=== PATIENT | female | born 1980 | race Caucasian/White ===

== ENCOUNTER → 2017-06-17 | Outpatient (CLI) | payer BC ==
--- NOTE | ~2017-06-17 | CNG ---
[facility] [place] [address] CYTO-NONGYN REPORT PROCEDURE Name: ANAIS OSMAN Room #: REG ADENIKE RazaEmilie.#: [id number] Admission: 06/17/17 Date of : 82 Discharge: Report #: [id number] Path Case #: [id number] CYTOPATHOLOGY REPORT COLLECTION DATE: 06/17/2017 RECEIVED DATE: 06/17/2017 SUBMITTING PHYS: Dr. Caesar Lind OTHER PHYS: Dr. Rian Guillen CLINICAL HISTORY: Mass. SPECIMEN(S) RECEIVED: A.US gudied Fine needle aspiration, Left thyroid nodule * * * * * * * * * * * * FINAL DIAGNOSIS: A. US gudied Fine needle aspiration, Left thyroid nodule: [place] CATEGORY II. SPECIMEN CONSISTS OF SCANT BENIGN FOLLICULAR CELLS, HEMOSIDERIN-LADEN MACROPHAGES, COLLOID, AND BLOOD. THIS PATTERN IS CONSISTENT WITH A BENIGN PROCESS SUCH A COLLOID NODULE OR AN ADENOMATOID NODULE. PATHOLOGIST: Lorrie Delacruz M.D. REPORT ELECTRONICALLY SIGNED BY: Lorrie Delacruz M.D. DATE/TIME: 06/18/2017 11:21 * * * * * * * * * * * * GROSS PATHOLOGY: A. US gudied Fine needle aspiration, Left thyroid nodule: The specimen is labeled "Anais Osman" and consists of three fixed slides, three air dried slides. Twenty mL of clear pink fluid in fixative from the needle rinse is also submitted and one ThinPrep slide and a cell block were prepared from this material. (clt 8) Also received is the RNARetain vial which will be held for molecular studies if needed. PROJECT ASSOCIATE(S): RACH Fried([facility]) INITIAL CPT CODE(S): A; 03203, 09750 Professional services performed by [facility] at [facility] [address] [facility] [place] [address] Technical services performed by [facility] at [address] [place] [address], [address], [place] [address]. [facility] [address] [place] [address] CYTO-NONGYN REPORT PROCEDURE Name: OSMANANAIS Room #: REG ADENIKE Perkins.#: [id number] Admission: 06/17/17 Date of : 82 Discharge: Report #: [id number] Path Case #: [id number] [facility] [address] [place] [address], [address] [place] [address] PHONE: [phone] DIRECTOR: Scot Juarez M.D. * * * END OF REPORT * * *
--- NOTE | ~2017-06-17 | S ---
[facility] [place] [address] SURGICAL PATH RPT PROCEDURE Name: CHIARA OSMAN Room #: REG ADENIKE Perkins.#: [id number] Admission: 06/17/17 Date of : 82 Discharge: Report #: [id number] Path Case #: [id number] PATHOLOGY REPORT COLLECTION DATE: 06/17/2017 RECEIVED DATE: 06/17/2017 SUBMITTING PHYS: Dr. Caesar Lind OTHER PHYS: Dr. Rian Guillen SPECIMEN(S) RECEIVED: A.Lt nodule mass * * * * * * * * * * * * FINAL DIAGNOSIS: Thyroid nodule, left, core needle biopsy: - Fragments of bland follicular epithelium. - No evidence of papillary carcinoma. (Please see comment) (SKM:dustin; 06/18/2017) COMMENT: Sections show bland follicular epithelium in which the follicles vary in size. No areas of papillary architecture are seen. No nuclear pseudoinclusions are seen. (SKM:dustin; 06/18/2017) PATHOLOGIST: Lorrie Delacruz M.D. REPORT ELECTRONICALLY SIGNED BY: Lorrie Delacruz M.D. DATE/TIME: 06/18/2017 12:19 * * * * * * * * * * * * GROSS PATHOLOGY: Received in formalin labeled "Ashleigh Osman, left neck thyroid," are multiple distinct needle cores of shah soft tissue ranging from 0.1 to 0.3 cm in length, which are submitted entirely in cassette A1. (SNA; 06/17/2017) CLINICAL HISTORY: Mass INITIAL CPT CODE(S): A; 16508 Professional services performed by [facility] at [facility], [address], [place] [address]. Technical [facility] [address] [place] [address] SURGICAL PATH RPT PROCEDURE Name: CHIARA OSMAN Room #: REG ADENIKE Onofre#: [id number] Admission: 06/17/17 Date of : 82 Discharge: Report #: [id number] Path Case #: [id number] [facility] [address] [place] [address], [facility] [address] [address]. [facility] [address] [address] PHONE: [phone] DIRECTOR: Scot Juarez M.D. * * * END OF REPORT * * *
== END | disposition home or self-care (01) ==
LOC: ULTRA 09:04 → LABMALL 09:04 → ULTRA 14:34
DX: D34 Benign neoplasm of thyroid gland (principal)

== ENCOUNTER → 2017-06-23 | Outpatient (CLI) | payer BC, OTHER ==
--- NOTE | ~2017-06-23 | EKG ---
[address] [address] ELECTROCARDIOGRAM REPORT Name: CHIARA JACKSON Room #: REG [facility] [id number] Admission: 06/23/17 Attend Phys: Caesar Lind MD Discharge: Date of : 82 Report #: [id number] THIS REPORT FOR: //name// [facility] Test Date: 2017-06-23 Test Time: 13:42:24 Pat Name: CHIARA JACKSON Department: Room: Gender: F Reimbursement Consultant: Ajit DENNIS : 1980 Requested By: Caesar Lind Order Number: [id number] MD: Measurements Intervals [place] Rate: 78 P: 58 [place]: 133 QRS: 44 QRSD: 86 T: 16 QT: 390 QTc: 445 Interpretive Statements Sinus rhythm Consider left ventricular hypertrophy No previous ECG available for comparison [email or web address] By: 134 1342 Rachael Cano MD /EPI
[2017-06-23 13:21] LABS: HEMATOCRIT 35.8 % (37.0-47.0); HEMOGLOBIN 11.4 gm/dL (12.0-15.0); MCH 22.2 pg (26.0-34.0); MCHC 31.9 g/dL (28.0-37.0); MCV 69.7 fL (80.0-100.0); PLATELET COUNT 223 thou/uL (150-400); RBC 5.14 mil/uL (4.20-5.00); RDW 23.2 % (10.5-14.5); WBC 6.9 thou/uL (4.0-11.0)
[2017-06-23 13:25] LABS: MANUAL DIFF YES
[2017-06-23 13:51] LABS: ABSOLUTE NEUTROPHILS 4.7 thou/uL (1.4-8.2); ANISOCYTOSIS 1+; MICROCYTES 3+; PLATELET ESTIMATE NORMAL; TOTAL CELL COUNT 100
== END ==
LOC: CV 12:50
PROVIDERS: Otolaryngology Plastic Surgery within the Head & Neck
DX: E07.9 Disorder of thyroid, unspecified (principal); E66.3 Overweight; R13.10 Dysphagia, unspecified; R53.83 Other fatigue

== ENCOUNTER 2017-07-01 05:11 | Day surgery (SDC) | payer BC, OTHER ==
[~2017-07-01] VITALS: Ht 160 cm; Wt 76.7 kg
--- NOTE | ~2017-07-01 | S ---
[facility] [place] [address] SURGICAL PATH RPT PROCEDURE Name: ANAIS GALEANO Room #: DEP [facility]..#: [id number] Admission: 07/01/17 Date of : 82 Discharge: 07/02/17 Report #: [id number] Path Case #: [id number] PATHOLOGY REPORT COLLECTION DATE: 07/01/2017 RECEIVED DATE: 07/02/2017 SUBMITTING PHYS: Dr. Caesar Lind OTHER PHYS: Dr. Rian Guillen SPECIMEN(S) RECEIVED: A.Left thyroid lobe and isthmus B.Right thyroid lobe * * * * * * * * * * * * FINAL DIAGNOSIS: A. "Left thyroid lobe and isthmus", thyroid lobectomy: - Thyroid with dominant nodule of nodular hyperplasia. - Lymph nodes (2) with mild hyperplasia. (2 nodes) B. "Right thyroid lobe", thyroid lobectomy: - Thyroid with nodular hyperplasia. - Lymph nodes (2) with mild hyperplasia. (2 nodes) COMMENT: The patient has a history of "fragments of bland follicular epithelium, no evidence of papillary carcinoma" from a left thyroid nodule needle core biopsy ([id number]) and "[place] category II - specimen consists of scant benign follicular cells, hemosiderin laden macrophages, colloid and blood. This pattern is consistent with a benign process such as a colloid nodule or an adenomatoid nodule" from an ultrasound guided fine needle aspiration of the left thyroid nodule ([id number]). Clinical and radiographic correlation is recommended. (CLW:db; 07/03/2017) PATHOLOGIST: Marlena Ndiaye M.D. REPORT ELECTRONICALLY SIGNED BY: Marlena Ndiaye M.D. DATE/TIME: 07/03/2017 15:09 * * * * * * * * * * * * GROSS PATHOLOGY: A. Specimen received fresh labeled "Anais Fernandez, left lobe of thyroid and isthmus" consists of a lobe of thyroid with portion of isthmus. The specimen weighs 9.8 grams and measures 4 x 2.5 x 1.5 cm. The specimen is inked black with isthmus inked yellow. The specimen is serially sectioned to reveal a nodule occupying almost the entire lobe measuring 3 x 2 x 1.5 cm. It is well [address] [address] SURGICAL PATH RPT PROCEDURE Name: ANAIS GALEANO Room #: DEP [facility]#: [id number] Admission: 07/01/17 Date of : 82 Discharge: 07/02/17 Report #: [id number] Path Case #: [id number] circumscribed with focal areas of hemorrhage and cystic change. A portion of the nodule is frozen and touch preps are prepared. The frozen section was submitted in cassette labeled A1 and the rest of the thyroid was submitted in cassette labeled A2-A5. (LEXA:; 07/02/2017) B. The specimen is received in formalin, labeled "Anais Fernandez, right thyroid lobe" is a thyroid lobectomy specimen and separately received nodule. The separate nodule measures 1.0 x 0.6 x 0.3 cm. Prior to sectioning outer surfaces are inked black. The cut surface has a pink-red, spongy appearance. No additional abnormalities are noted. The lobectomy specimen weighs 5 g and measures 4.2 x 2.5 x 0.6 cm. Outer surfaces have a pink red, ragged to bosselated appearance. Prior to sectioning outer surfaces are inked black. The cut surface is pink red, spongy and congested. One circumscribed, shah, colloid nodule is noted measuring 0.4 cm in greatest dimension. No additional abnormalities are noted. The separately received nodules measure in cassette B1 and the thyroid nodule is serially sectioned and entirely submitted in cassettes B2-B5 with the aforementioned nodule in cassette B2. (JWP; 07/02/2017) FROZEN SECTION DIAGNOSIS: (Lorrie Paulson M.D.) FSA1 thyroid, "left thyroid lobe and isthmus": - Follicular lesion. These findings were discussed with Dr. Lind and a written report was placed in the patient's chart. (SHA:; 07/02/2017) Testing performed by [facility] at [facility] [address] [place] [address] CLINICAL HISTORY: Left thyroid lobe mass INITIAL CPT CODE(S): A; 86517, 03357, 52242 B; 45666, 07489 Professional services performed by [facility] at [facility] [address] [place] [address] Technical services performed by [facility] at [address] [place] [address], [address], [place] [address]. [facility] [address] [place] [address] SURGICAL PATH RPT PROCEDURE Name: JACKSON THIANAIS Room #: [facility] M.Bryn.#: [id number] Admission: 07/01/17 Date of : 82 Discharge: 07/02/17 Report #: [id number] Path Case #: [id number] [facility] [address] [place] [address] PHONE: [phone] DIRECTOR: Scot Juarez M.D. * * * END OF REPORT * * *
--- NOTE | ~2017-07-01 | O ---
[facility] [place] [address] OPERATIVE REPORT Name: CHIARA GALEANO Room #: DEP [facility]..#: [id number] Admission: 07/01/17 Attend Phys: Caesar Lind MD Discharge: 07/02/17 Date of : 82 Report #: [id number] THIS REPORT FOR: //name// CC: Rian Lind DATE OF SERVICE: 07/01/2017 SURGEON: Caesar Lind MD PREOPERATIVE DIAGNOSES: 1. Left thyroid mass. 2. Multinodular goiter. POSTOPERATIVE DIAGNOSES: 1. Left thyroid mass. 2. Multinodular goiter. OPERATION PERFORMED: Total thyroidectomy. INDICATIONS: The patient is a 36-year-old female presenting on referral from her primary care physician, Dr. Guillen with a mass in the left side of thyroid measuring on ultrasound 4.1 cm. The right lobe showed a smaller 1.4 cm mass or nodule. Fine needle aspiration was done consistent with a follicular lesion [place] class II. The mass was symptomatic with dysphagia, compressive symptoms, and some change in voice. In light of the above, recommendations were made for surgical removal. Because the patient has masses bilateral, this would necessitate total thyroidectomy. DESCRIPTION OF PROCEDURE: The patient was brought to the operating room and placed supine on the operating table. After adequate general anesthesia was achieved via endotracheal intubation with a nerve integrity monitoring endotracheal tube, the shoulder was placed and the neck extended. The planned incision was marked out in a relaxed skin tension line above the manubrium and injected with 1% Xylocaine with 1:100,000 epinephrine. As a separate part of the procedure, the XMainOne nerve integrity monitor was applied to the electrodes from the endotracheal tube. Ground electrodes were placed in the soft tissue overlying the sternum and contralateral shoulder. Electrode resistance and impedance was measured and found to be acceptable. Threshold and stimulus intensity parameters were set and the patient was monitored for the entirety of the case of approximately 2 hours in order to locate and protect the recurrent laryngeal nerve. Procedure began with incision through skin and subcutaneous tissue and platysma. [facility] [address] [place] [address] OPERATIVE REPORT Name: RENETTA BAÑUELOSKI AVALOSSEY Room #: [place] [facility] [place].Bryn.#: [id number] Admission: 07/01/17 Attend Phys: Caesar Lind MD Discharge: 07/02/17 Date of : 82 Report #: [id number] Subplatysmal flaps were elevated superiorly and inferiorly. Dissection was made down to the strap muscles. These were divided vertically in the midline and retracted laterally. Beginning on the left side, which was the side of the mass, dissection began superiorly. The superior vessels were sequentially identified, clamped between Ligaclips and divided. Middle thyroid vein was taken down between Ligaclips. The inferior vessels were sequentially identified, clamped between Ligaclips and divided. The isthmus was then elevated off the trachea. This was then taken down with harmonic elliot. Dissection began on the right side. Again, the right side was dissected, so that this could be palpated. There was a mass present as well. Attention was then returned to the left side. The gland was rolled up on to the trachea. Dissection in the tracheoesophageal groove revealed the recurrent nerve in its usual anatomic position. This was tracked superiorly to the cricothyroid joint and preserved under direct vision. This was confirmed by probe stimuli. Roland's ligament was taken down sharply. There were vessels in the area, clamped between Ligaclips and divided. The left lobe was then delivered off the field as specimen. The superior parathyroid was found attached to the capsule, it was able to be dissected free. Just opposite the cricothyroid joint, the inferior parathyroid was dissected free and protected. The lobe was delivered off the field as specimen to pathology confirming a large mass consistent with a follicular lesion. Final diagnosis was deferred to permanent section. There were no papillary features. Attention was then turned to the right side. Again, beginning superiorly, the superior vessels were sequentially identified, clamped between Ligaclips and divided and the middle thyroid vein was taken down between Ligaclips. The inferior vessels were sequentially identified, clamped between Ligaclips and divided. Gland was rolled up on to the trachea. Again, dissection in the tracheoesophageal groove revealed the recurrent nerve. This was tracked superiorly to the cricothyroid joint. Keeping it in direct vision, Roland's ligament was taken down sharply. Again, on this side, the superior parathyroid was attached to the capsule and it was dissected, kept preserved on its blood supply. The inferior parathyroid was attached to the thyroid capsule, again dissected free and kept on its blood supply. This lobe was then delivered off the field as specimen in formalin. Hemostasis was assured with bipolar cautery and clip ligature. Both nerves were stimulated at the end of the procedure and found to be intact. All four parathyroids were visualized. Powdered Slime was placed opposite each cricothyroid joint. A 10-Taiwanese Jett drain was then placed into the wound through a separate stab incision, curled into the wound and connected to bulb suction. It was sutured in place with 2-0 silk. The soft tissue and platysmal layer were then closed with interrupted 3-0 Vicryl, 3-0 Vicryl was used to close subcutaneous tissue, 4-0 Vicryl deep dermal sutures were then placed and then a 5-0 running subcuticular Prolene on skin. Mastisol and Steri-Strips were applied followed by an OpSite for dressing. The patient was then returned to the anesthesia, awake without difficulty, returned to recovery in good condition. Sponge and needle counts were correct. There were [facility] [address] [place] [address] OPERATIVE REPORT Name: CHIARA GALEANO Room #: [place] [facility] [place]emima#: [id number] Admission: 07/01/17 Attend Phys: Caesar Lind MD Discharge: 07/02/17 Date of : 82 Report #: [id number] no complications and the blood loss was about 50 mL. The patient will be watched awake and stable overnight for monitoring of her calcium, presuming she does well in the morning and discharged to home with plans to follow with me in 1 week for suture removal and in 48 hours for drain removal. Written and verbal discharge instructions and emergency precautions have been given to her family. DISCHARGE MEDICATIONS: Will include cephalexin 500 mg 1 b.i.d. for 10 days, hydrocodone/acetaminophen 7.5/325 one to two q. 4-6 hours p.r.n., Phenergan suppository 25 mg 1 per rectum q.4-6 hours p.r.n., Synthroid 150 mcg daily and Tums 500 mg 2 tablets t.i.d. She is instructed on light activity and soft diet. <ELECTRONICALLY SIGNED> By: Caesar Lind MD 07/08/17 1547 1556 1721 Caesar Lind MD /nt
[~2017-07-01 05:11] MED LIST: MAXZIDE 75-501 EACH PO; PRENATAL ONE T1 EACH PO
[2017-07-01 12:10] VITALS: BP 128/85
[2017-07-01] MEDS ORDERED: HYDROCODONE-APA1 TA1 PO (16:02)
[2017-07-01] MEDS ORDERED: LEVOTHYROXINE 0.15MG PO (16:04)
[2017-07-01] MEDS ORDERED: PROMS25 WY RECTAL (16:04)
[2017-07-01] MEDS ORDERED: KEFLEX500 M1 PO (16:05)
[2017-07-01] MEDS ORDERED: TUMS PO (16:06)
[2017-07-01 16:27] LABS: ALBUMIN 3.1 g/dL (3.4-5.0); MAGNESIUM 1.6 mg/dL (1.8-2.4)
[2017-07-01 20:20] VITALS: BP 120/72
[2017-07-02 05:00] VITALS: BP 124/73
[2017-07-02 07:22] VITALS: BP 124/73
[2017-07-02 08:00] VITALS: BP 128/84
== END 2017-07-02 10:38 | disposition home or self-care (01) ==
LOC: TBA 05:11 → OR 05:11 → 4S 05:11 → TBA 05:12 → OR 09:15 → TBA 18:24 → 4S 18:24 → OR 07-02 10:38
PROVIDERS: Otolaryngology Plastic Surgery within the Head & Neck
DX: E04.1 Nontoxic single thyroid nodule (principal)
CPT/HCPCS: 50010; 50101; 50386; 50417; 52190; 52220; 52225; 52287; 56524; 56526; 56528; 56760; 57006; 62110; 62900; 65006; 70005